=== PATIENT | female | born 1995 | race Caucasian/White ===

== ENCOUNTER 2017-05-18 02:52 | Emergency (ER) | payer BC ==
[~2017-05-18] VITALS: Ht 167.6 cm; Wt 79.5 kg
[2017-05-18 02:56] VITALS: BP 131/80; PULSE 90; TEMP 98.3
[2017-05-18] MEDS ORDERED: AMOXICILLIN 50500 MG PO (03:02)
[2017-05-18] MEDS ORDERED: NIKKI1 TAB PO (03:02)
[2017-05-18 03:16] LABS: COLLECTION METHOD CLEAN CATCH
[2017-05-18 03:28] LABS: MUCOUS Present /lpf; PH 5 (5-8); URINE APPEARANCE Cloudy; URINE BACTERIA None Seen /hpf; URINE BILIRUBIN Negative (NEGATIVE); URINE BLOOD 3+ (NEGATIVE); URINE COLOR Red; URINE GLUCOSE 1+ (NEGATIVE); URINE KETONE Negative (NEGATIVE); URINE LEUKOCYTE ESTERASE Trace (NEGATIVE); URINE PROTEIN(semi-quant) 3+ (NEGATIVE); URINE RBC >50 /hpf; URINE UROBILINOGEN >=4.0 mg/dL (NEGATIVE); URINE WBC >50 /hpf
[2017-05-18] MEDS ORDERED: OMNICEF 300MG300 MG PO (03:40)
[2017-05-18] MEDS ORDERED: PYRIDIUM200 M1 PO (03:40)
== END 2017-05-18 04:12 | disposition home or self-care (01) ==
LOC: COL.ER 02:52
PROVIDERS: Emergency Medicine
DX: N30.91 Cystitis, unspecified with hematuria (principal); Z87.440 Personal history of urinary (tract) infections; Z86.19 Personal history of other infectious and parasitic diseases
CPT/HCPCS: J0696